=== PATIENT | male | born 1990 | race Caucasian/White ===

== ENCOUNTER 2024-06-16 12:26 | Emergency (ER) | payer OTHER, SELFPAY ==
[2024-06-16 12:30] VITALS: BP 166/100
[2024-06-16 12:53] VITALS: BMI 52.0
--- NOTE | 2024-06-16 13:49 | ED.MUSCINJ ---
HPI-Injury
General
Chief Complaint: Musculo-Skeletal Complaint
Source: patient
Time Seen by Provider: 06/16/24 13:28
History of Present Illness-Injury
Initial Injury comments:
33-year-old male not anticoagulated has [id number] diabetes presents after a fall. He was 5 to 6 feet on a staircase with a stair he was on broke. He fell backwards down the stairs hitting the right shoulder right ribs. He complains of
headache and neck pain as well. No known loss of consciousness. He was brought here in a cervical collar. He denies abdominal pain. No shortness of breath. No other complaints at this time
Past History
Past History
ED Past Medical History: None
ED Past Surgical History: None
Social History
Tobacco: Non-smoker
Alcohol: None
Drug: None
Personal: Single
Living: with family
Phy Exam
Physical Exam
Physical Exam:
General: Well-appearing male no acute respiratory distress
HEENT: Normocephalic atraumatic pupils equal round reactive to light
Heart: Regular rate and rhythm
Lungs: Breath sounds heard throughout. Clear
Abdomen is soft nontender no ecchymosis or swelling
Musculoskeletal exam: Tenderness noted about the right shoulder right chest wall and neck. No deformities or tenderness to the legs
Neurologic: Alert and oriented no facial asymmetry
Extremities: No cyanosis
Injury Course
Orders/Labs/Results
Orders:
Orders
06/16/24 13:41
CT Cervical Spine W/o Iv Contr Urgent
Comment:
Reason For Exam: fall, neck pain
CT Chest W/o Iv Contrast Urgent
Comment:
Reason For Exam: fall, right rib and chest pain
CT Head W/o Iv Contrast Urgent
Comment:
Reason For Exam: fall
CR Shoulder, Trauma - Right Urgent
Comment:
Reason For Exam: fall, right shoulder pain
06/16/24 15:37
Acetaminophen [Tylenol] 1,000 mg PO NOW STA
MDM/Problems Addressed
Differential Diagnosis Includes:
Fall down steps. Concern for head neck or chest injury as well as right shoulder injury. Consider fracture versus dislocation versus pneumothorax versus rib fracture versus intracranial injury
Mechanism somewhat concerning. CT of head cervical spine and chest ordered. X-ray right shoulder ordered
*Critical Care Note
Total Time (30-74mins, 75-104mins- exclusive of procedures): Not Applicable
Update Note
Update Note:
CT of head cervical spine and chest all reviewed and negative for acute traumatic injury other than a scalp hematoma. There is no fractures rib fractures. X-ray of the right shoulder was also visualized and is negative. Patient reassured.
Recommended ibuprofen and Tylenol. Stable for discharge
ED Attending Note
-
Portions of this chart may have been created with voice recognition software.� Occasional wrong word or��sound alike� substitutions may have occurred due to the inherent limitations of voice recognition software.
Discharge Plan
Departure
Patient Disposition: Home (Routine Discharge)
Date of Disposition: 06/16/24
Time of Disposition: 17:02
Patient with high blood pressure during this ER visit?: No
Discharge Problem:
Contusion
Instructions: Contusion (DC)
Referrals:
Cem Cuadra, DO [Family Provider] -
Activity Restrictions/Additional Instructions:
Rest. Use ibuprofen or Tylenol. Return if worse otherwise follow-up with your family doctor
Interventions
Interventions:
*Risk Screen - Suicide Last Done: 06/16/24 12:55
*General Assessment Last Done: 06/16/24 12:55
*Neglect/Abuse Screening Last Done: 06/16/24 12:55
*ED COVID-19 Vaccine History Last Done: 06/16/24 12:55
ED-Musculoskeletal Assessment Last Done: 06/16/24 12:55
Discharge Date and Time
Print Language: LATVIAN
[2024-06-16 14:00] VITALS: BP 123/74
[2024-06-16] MEDS: TYLENOL 1000 MG PO (15:44)
[2024-06-16 16:09] VITALS: BP 129/79
[2024-06-16 17:04] VITALS: BP 125/74
== END 2024-06-16 17:11 | disposition home or self-care (01) ==
LOC: EMR 12:26
PROVIDERS: EMERGENCY PHYSICIAN Emergency Medicine; FAMILY PHYSICIAN Family Medicine
DX: S00.03XA Contusion of scalp, initial encounter (principal); S49.91XA Unspecified injury of right shoulder and upper arm, initial encounter; M54.2 Cervicalgia; R51.9 Headache, unspecified; R07.89 Other chest pain; M25.511 Pain in right shoulder; W10.9XXA Fall (on) (from) unspecified stairs and steps, initial encounter; E11.9 Type 2 diabetes mellitus without complications
CPT/HCPCS: 99284; 70450; 71250; 72125; 73030